=== PATIENT | male | born 1990 | race Hispanic/Latino ===

== ENCOUNTER 2016-12-02 13:26 | Emergency (ER) | payer BC, OTHER ==
[2016-12-02 13:26] VITALS: BMI 22.4
--- NOTE | 2016-12-02 14:26 | ED PDOC ---
HPI: Psych/Substance Abuse Time Seen by Provider: 12/02/16 13:29 Chief Complaint (Nursing): Substance Abuse Chief Complaint (Provider): found altered on ground ED Caveat: Intoxicated History Per: EMS History/Exam Limitations: clinical condition, intoxication Onset/Duration Of Symptoms: Unknown Current Symptoms Are (Timing): Still Present Severity: Moderate Associated Symptoms: Agitation Involuntary Hold By: Emergency Physician Additional History Per: Prior Records Additional Complaint(s): 26yo male arrives w police and EMS, agitated found on ground possible substance abuse. Friends at scene deny trauma. Police suspicious for substance abuse, unknown intoxicant. In ED labile and easily agitated, aggressive w poor insight. Required relief of agitation with ativan and restraints briefly until greater insight and cooperativity obtained. Past Medical History Reviewed: Historical Data, Nursing Documentation, Vital Signs, Unable To Obtain Vital Signs: Last Vital Signs Temp 98.0 F 12/02/16 13:29 Pulse 142 H 12/02/16 13:29 Resp 16 12/02/16 13:29 BP 205/102 H 12/02/16 13:29 Pulse Ox 95 12/02/16 13:29 - Medical History PMH: Denies: Depression - Family History Family History: States: Unknown Family Hx - Home Medications Home Medications: Ambulatory Orders Medication Instructions Recorded Unobtainable 12/21/15 - Allergies Allergies/Adverse Reactions: Allergies Allergy/AdvReac Type Severity Reaction Status Date / Time No Known Allergies Allergy Verified 12/02/16 13:28 Review of Systems Review Of Systems: ROS cannot be obtained secondary to pt's inabilty to answer questions. Physical Exam - Reviewed Nursing Documentation Reviewed: Yes Vital Signs Reviewed: Yes - Physical Exam Appears: Positive for: Non-toxic (AMS, delirium) Head Exam: Positive for: NORMAL INSPECTION, NORMOCEPHALIC. Negative for: ATRAUMATIC (+ small contusion to R upper face) Skin: Positive for: Normal Color, Warm, DRY Eye Exam: Positive for: EOMI, Normal appearance, PERRL ENT: Positive for: Normal ENT Inspection Neck: Positive for: Normal, Painless ROM, Supple, Trachea Midline. Negative for : Pain On Movement Of Neck Cardiovascular/Chest: Positive for: Regular Rate, Rhythm Respiratory: Positive for: CNT, Normal Breath Sounds Gastrointestinal/Abdominal: Positive for: Soft. Negative for: Tenderness Back: Positive for: Normal Inspection Extremity: Positive for: Normal ROM, Other (? track dawson R antecub fossa). Negative for: Calf Tenderness, Swelling Neurologic/Psych: Positive for: Alert, Mood/Affect (agitated poor insight). Negative for: Motor/Sensory Deficits (moves all ext w equal tone), Aphasia - Laboratory Results Result Diagrams: 12/02/16 14:10 12/02/16 14:10 - ECG O2 Sat by Pulse Oximetry: 95 Medical Decision Making Medical Decision Making: labs ordered. Ativan 2mg IM ordered. nurse monitoring maintained. CT brain ordered given AMS and found on ground. 230p more awake and cooperative. Admits to doing amparo dust. Restraints removed. Disposition - Clinical Impression Clinical Impression: Substance abuse, Altered mental status - Patient ED Disposition Is Patient to be Admitted: Transfer of Care - Disposition Disposition: Transfer of Care Disposition Time: 15:00 Condition: FAIR Patient Signed Over To: Zaynab Anderson Handoff Comments: pending labs and imaging results, re-eval and dispo
[2016-12-02 14:32] LABS: BASO % 0.4 % (0.0-2.0); EOS # 0.1 K/uL (0.0-0.7); EOS % 0.8 % (0.0-4.0); HEMATOCRIT 40.9 % (35.0-51.0); LYMPH # 1.7 K/uL (1.0-4.3); LYMPH % 14.6 % (20.0-40.0); MEAN CELL VOLUME 91.5 fl (80.0-94.0); MEAN CORPUSCULAR HGB CONC 33.9 g/dL (33.0-37.0); MEAN PLATELET VOLUME 8.9 fl (7.2-11.7); MONO # 0.7 K/uL (0.0-0.8); NEUT # 9.2 K/uL (1.8-7.0); NEUT % 78.2 % (50.0-75.0); NRBC % 0.1 % (0.0-0.0); RED CELL DISTRIBUTION WIDTH 13.5 % (11.5-14.5); WHITE BLOOD COUNT 11.8 K/uL (4.8-10.8)
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
[2016-12-02 14:45] LABS: ALB/GLOB RATIO 1.6 (1.0-2.1); ALCOHOL SERUM < 10 mg/dl (0-10); ALKALINE PHOSPHATASE 37 U/L (38-126); ALT/SGPT 36 U/L (21-72); AST/SGOT 41 U/L (17-59); BILIRUBIN,TOTAL 0.6 mg/dl (0.2-1.3); BLOOD UREA NITROGEN 16 mg/dl (9-20); CALCIUM 9.3 mg/dL (8.4-10.2); CARBON DIOXIDE 27 mmol/L (22-30); CHLORIDE 98 mmol/L (98-107); GFR AFRICAN-AMERICAN > 60; GLUCOSE,RANDOM 121 mg/dL (75-110); POTASSIUM 3.2 MMOL/L (3.6-5.0); SODIUM 139 mmol/l (132-148); TOTAL PROTEIN 7.5 G/DL (6.3-8.2)
[2016-12-02 14:52] VITALS: RESP 18
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
[2016-12-02 17:26] VITALS: BP 132/81; PULSE 81; TEMP 97.9
[2016-12-02 17:30] VITALS: O2SAT 100
--- NOTE | 2016-12-03 09:00 | CARD ---
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
== END 2016-12-02 17:27 | disposition home or self-care (01) ==
LOC: H.ER 13:26
DX: R41.82 Altered mental status, unspecified (principal); F19.20 Other psychoactive substance dependence, uncomplicated
CPT/HCPCS: 70450; 80053; 84484; 85025; 93005; 96372; 99281; G0480; J2060